=== PATIENT | male | born 1955 | race Caucasian/White ===

== ENCOUNTER 2018-12-14 08:31 | Emergency (ER) | payer MEDICARE ==
[~2018-12-14] VITALS: Ht 182.9 cm; Wt 127.2 kg
[~2018-12-14 08:31] MED LIST: AFRIN15 ML NS; ASPIR 8181 MG PO; ATIVAN0.5 MG PO; CARAFATE 1 GM TA1 G1 PO; CENTRUM SILVER1 EAC4 PO; GLUCOPHAGE500 MG; GLUCOTROL XL5 MG; LIPITOR20 MG; LISINOPRIL10 MG; ULTRAM 50MG TAB50 MG PO; ZANTAC 150MG T150 M1 PO; ZOFRAN ODT4 MG SUBLING; ZOFRAN4 MG PO; ZYLOPRIM300 MG
[2018-12-14 09:56] LABS: ANISOCYTOSIS 1+; PLATELET ESTIMATE ADEQUATE; POIKILOCYTOSIS 1+
[2018-12-14 09:59] LABS: ALBUMIN 3.7 g/dL (3.4-5.0); ALKALINE PHOSPHATASE 105 U/L (46-116); ANION GAP 9 mmol/L (7-16); BUN 20 mg/dL (7-18); CALCIUM 8.1 mg/dL (8.5-10.1); CHLORIDE 100 mmol/L (98-107); CO2 27 mmol/L (21-32); CREATININE 1.1 mg/dL (0.6-1.3); GLUCOSE 176 mg/dL (70-99); LIPASE 138 U/L (73-393); POTASSIUM 3.9 mmol/L (3.5-5.1); SGOT 32 U/L (15-37); SGPT 39 U/L (30-65); SODIUM 136 mmol/L (136-145); TOTAL BILIRUBIN 0.5 mg/dL (<0.1-1.0); TROPONIN-I LEVEL <0.06 ng/mL (<0.06)
[2018-12-14 10:05] LABS: ABSOLUTE EOSINOPHILS 0.1 thou/uL (0.0-0.7); ABSOLUTE LYMPHOCYTES 0.7 thou/uL (0.8-5.3); ABSOLUTE MONOCYTES 0.3 thou/uL (0.0-1.2); ABSOLUTE NEUTROPHILS 7.7 thou/uL (1.6-8.1); HEMATOCRIT 39.8 % (42.0-52.0); HEMOGLOBIN 13.6 gm/dL (14.0-18.0); RBC 4.62 mil/uL (4.50-6.00); WBC 8.8 thou/uL (4.0-11.0)
[2018-12-14 10:06] LABS: MCH 29.4 pg (26.0-34.0); MCHC 34.2 g/dL (28.0-37.0); MPV 7.1 fl. (7.2-11.1); PLATELET COUNT* 324 thou/uL (150-400); RDW-CV 14.5 % (10.5-14.5)
[2018-12-14] MEDS ORDERED: CARAFATE1 GM PO (11:16)
[2018-12-14] MEDS ORDERED: HYDROCODONE-AP1 EAC6 PO (11:16)
[2018-12-14 11:25] VITALS: BP 125/71
--- NOTE | 2018-12-14 15:18 | EKG ---
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: Pavithra ARELLANO : 1955 Requested By: [address] Order Number: [id number] MD: Ankit Crowder Measurements Intervals [place] Rate: 85 P: 28 CT: 186 QRS: -35 QRSD: 101 T: 67 QT: 381 QTc: 453 Interpretive Statements Sinus rhythm Incomplete RBBB and LAFB RSR' in V1 or V2, right VCD or RVH Compared to ECG 12/18/2013 23:40:28 Left anterior fascicular block now present Incomplete right bundle-branch block now present Right bundle-branch block now present Right ventricular hypertrophy now present RSR' in V1 or V2 now present Electronically Signed On 12-14-2018 15:17:54 CDT by Ankit Crowder [email or web address] <ELECTRONICALLY SIGNED> By: Ankit Crowder MD, [facility] 12/14/18 1517 3 3 Ankit Crowder MD, [facility] /EPI
== END 2018-12-14 11:25 | disposition home or self-care (01) ==
LOC: M.ERS 08:31
PROVIDERS: Emergency Medicine Emergency Medical Services
DX: R10.30 Lower abdominal pain, unspecified (principal); R11.2 Nausea with vomiting, unspecified; F17.210 Nicotine dependence, cigarettes, uncomplicated; I10 Essential (primary) hypertension; E11.9 Type 2 diabetes mellitus without complications; F41.9 Anxiety disorder, unspecified; G47.30 Sleep apnea, unspecified